=== PATIENT | female | born 1965 | race Caucasian/White ===

== ENCOUNTER 2018-06-11 08:04 | Emergency (ER) | payer MEDICAID ==
[~2018-06-11] VITALS: Ht 167.6 cm; Wt 71.5 kg
[~2018-06-11 08:04] MED LIST: AMIT25TA23; CYCL-1 PO; FLAX100015 PO; GABA-341; HYDR-569 PO; IBUP-1574; LEVO100T9; LOSA50TA21; MOME17SP; MULT1TAB74 PO; OMEG1CAP2 PO; OXYC-145 PO; PANT40TA4; SIMV20TA5; [UNRECOGNIZED DRUG - CODE]
[2018-06-11 08:19] VITALS: BP 121/88
== END 2018-06-11 09:42 | disposition left against medical advice (07) ==
LOC: ER 08:05
DX: M54.5 Low back pain (principal); Z53.21 Procedure and treatment not carried out due to patient leaving prior to being seen by health care provider

== ENCOUNTER 2018-11-10 06:16 | Emergency (ER) | payer MEDICAID ==
[~2018-11-10] VITALS: Ht 165.1 cm; Wt 71.8 kg
[~2018-11-10 06:16] MED LIST changes: +HYDR-4383 PO; -HYDR-569 PO; -LOSA50TA21; +LOSA50TA64
[2018-11-10 06:20] VITALS: BP 145/103
[2018-11-10] MEDS ORDERED: ketorolac trometh. 30mg/ml inj. IM ONE (06:35)
[2018-11-10] MEDS ORDERED: orphenadrine citrate 60mg/2ml inj. IM ONE (06:35)
[2018-11-10] MEDS ORDERED: ketorolac trometh inj. 60 MG/2 ML VIAL IM ONE (06:35)
[2018-11-10] MEDS ORDERED: ORPH100T2 PO (06:59)
[2018-11-10] MEDS ORDERED: HYDR-4383 PO (06:59)
[2018-11-10] MEDS ORDERED: IBUP-1986 PO (07:00)
== END 2018-11-10 07:09 | disposition home or self-care (01) ==
LOC: ER 06:17
DX: M54.2 Cervicalgia (principal); G89.29 Other chronic pain; I10 Essential (primary) hypertension; E11.9 Type 2 diabetes mellitus without complications; E03.9 Hypothyroidism, unspecified; F12.90 Cannabis use, unspecified, uncomplicated; Z98.890 Other specified postprocedural states; Z79.899 Other long term (current) drug therapy
CPT/HCPCS: 96372; 99283; J1885; J2360

== ENCOUNTER 2020-04-19 07:13 | Emergency (ER) | payer MEDICAID, OTHER ==
[~2020-04-19] VITALS: Ht 167.6 cm; Wt 60.9 kg
[~2020-04-19 07:13] MED LIST changes: +IBUP-1986 PO; +MULT-620 PO; -MULT1TAB74 PO; +ORPH100T2 PO
[2020-04-19] MEDS ORDERED: triamcinolone acetonide 40mg/ml inj IM ONE (07:45)
[2020-04-19] MEDS ORDERED: BUPIVAcaine/PF 2.5 mg/ml (0.25%) 30ml vial IJ ONE (07:45)
[2020-04-19] MEDS ORDERED: acetaminophen 325mg tablet PO ONE (07:45)
[2020-04-19] MEDS ORDERED: LIDOcaine 1% 30ml preserv. free vial IJ ONE (07:45)
[2020-04-19] MEDS ORDERED: ketorolac trometh inj. 60 MG/2 ML VIAL IM ONE (07:45)
[2020-04-19] MEDS ORDERED: BUPIVAcaine/PF 2.5mg/ml (0.25%) 10ml vial IJ ONE (07:50)
[2020-04-19 09:00] VITALS: BP 151/94
== END 2020-04-19 09:01 | disposition home or self-care (01) ==
LOC: ER 07:14
DX: M75.41 Impingement syndrome of right shoulder (principal); I10 Essential (primary) hypertension; E11.9 Type 2 diabetes mellitus without complications; E03.9 Hypothyroidism, unspecified; G89.29 Other chronic pain; F12.90 Cannabis use, unspecified, uncomplicated; Z98.890 Other specified postprocedural states; Z72.89 Other problems related to lifestyle; Z79.899 Other long term (current) drug therapy
CPT/HCPCS: 20610; 96372; 99283; J1885

== ENCOUNTER 2021-03-13 06:58 | Emergency (ER) | payer MEDICAID ==
[~2021-03-13] VITALS: Ht 167.6 cm; Wt 60.0 kg
[~2021-03-13 06:58] MED LIST changes: -PANT40TA4; +PANT40TA54
[2021-03-13 07:01] VITALS: BP 115/77
[2021-03-13] MEDS ORDERED: HYDROcodone/acetaminophen 10/325mg tab PO ONE (08:25)
[2021-03-13] MEDS ORDERED: ketorolac trometh inj. 60 MG/2 ML VIAL IM ONE (08:25)
[2021-03-13] MEDS ORDERED: ketorolac trometh. 30mg/ml inj. IM ONE (08:30)
[2021-03-13] MEDS ORDERED: HYDR-3972 PO (08:32)
== END 2021-03-13 09:04 | disposition home or self-care (01) ==
LOC: ER 06:58
DX: G89.29 Other chronic pain (principal); M25.511 Pain in right shoulder; I10 Essential (primary) hypertension; E11.9 Type 2 diabetes mellitus without complications; E03.9 Hypothyroidism, unspecified; F12.90 Cannabis use, unspecified, uncomplicated; Z72.89 Other problems related to lifestyle; Z98.890 Other specified postprocedural states; Z79.899 Other long term (current) drug therapy
CPT/HCPCS: 96372; 99283; J1885

== ENCOUNTER 2021-03-20 10:34 | Emergency (ER) | payer MEDICAID ==
[~2021-03-20] VITALS: Ht 167.6 cm; Wt 61.0 kg
[2021-03-20 11:25] VITALS: BP 140/94
--- NOTE | 2021-03-20 12:54 | NUR ---
C/O PAIN IN RIGHT SHOULDER, RADIATING DOWN RIGHT ARM. HX SHOULDER SURGERY IN THE PAST. DENIES TRAUMA OR INJURY TO RIGHT ARM/SHOULDER. MUSCLE IN UPPER RIGHT ARM IS TENDER ON PALPATION.
[2021-03-20] MEDS ORDERED: ketorolac trometh. 30mg/ml inj. IM ONE (14:30)
== END 2021-03-20 14:50 | disposition home or self-care (01) ==
LOC: ER 10:35
DX: M25.511 Pain in right shoulder (principal); M79.601 Pain in right arm; R22.31 Localized swelling, mass and lump, right upper limb; I10 Essential (primary) hypertension; E07.9 Disorder of thyroid, unspecified; G89.29 Other chronic pain; E11.9 Type 2 diabetes mellitus without complications; F12.90 Cannabis use, unspecified, uncomplicated; Z72.89 Other problems related to lifestyle; Z79.899 Other long term (current) drug therapy
CPT/HCPCS: 73030; 93971; 96372; 99284; J1885

== ENCOUNTER 2024-12-07 08:46 | Outpatient (CLI) | payer MEDICAID ==
[~2024-12-07 08:46] MED LIST changes: -MOME17SP; +MOME17SP5; -ORPH100T2 PO; +ORPH100T4 PO
== END 2024-12-07 23:59 | disposition home or self-care (01) ==
LOC: MRI02 08:46
PROVIDERS: ATTEND Podiatrist
DX: M19.071 Primary osteoarthritis, right ankle and foot (principal); M20.11 Hallux valgus (acquired), right foot; G57.91 Unspecified mononeuropathy of right lower limb
CPT/HCPCS: 73718

== ENCOUNTER 2025-06-02 07:35 | Outpatient (CLI) | payer MEDICAID ==
[2025-06-02 08:03] LABS: MEAN PLATELET VOLUME 6.6 FL (7.4-10.4); RED CELL DISTRIBUTION WIDTH 14.2 % (11.5-14.5)
[2025-06-02 08:29] LABS: CHOL/HDL RATIO 6.2 (0.00-4.99); CREATININE 0.68 MG/DL (0.40-0.90); LDL CHOLESTEROL 208 MG/DL (50-100); TOTAL CARBON DIOXIDE 23.5 MMOL/L (24-32); eGFR 88 ML/MIN
== END 2025-06-02 23:59 | disposition home or self-care (01) ==
LOC: LAB 07:35
PROVIDERS: ATTEND Nurse Practitioner
DX: I10 Essential (primary) hypertension (principal); E78.5 Hyperlipidemia, unspecified; E03.9 Hypothyroidism, unspecified
CPT/HCPCS: 36415; 80053; 80061; 82043; 82570; 84439; 84443; 85025